=== PATIENT | female | born 1980 ===

== ENCOUNTER 2022-11-08 14:00 | Outpatient (RCR) | payer OTHER, SELFPAY | END 2023-01-03 14:38 | disposition home or self-care (01) | LOC: HO.PTCHIC 14:00 | PROVIDERS: PCP Internal Medicine; Visit Provider Colon & Rectal Surgery | DX: M99.05 Segmental and somatic dysfunction of pelvic region (principal) | CPT/HCPCS: 97110; 97112; 97140; 97161; 97535 ==